=== PATIENT | female | born 1970 ===

== ENCOUNTER 2016-10-25 11:34 | Day surgery (SDC) | payer MEDICAID, OTHER ==
[2016-10-18 15:12] VITALS: BMI 50.8
[2016-10-25] MEDS ORDERED: Etomidate 20 mg/10ml Inj IV ONE (12:33)
[2016-10-25] MEDS ORDERED: Propofol 10 mg/ml Inj (20 ML) ONE (12:33)
[2016-10-25] MEDS ORDERED: Phenylephrine 10 mg/ml Inj ONE (12:34)
[2016-10-25] MEDS ORDERED: ePHEDrine 50 mg/ml Inj ONE (12:34)
[2016-10-25] MEDS ORDERED: HYDROmorphone 1 mg/ml ISec ONE (13:48)
--- NOTE | 2016-10-25 14:20 | CP.SDSHP ---
Same Day Surgery H & P - History Proposed Procedure: see [facility] consult. no change - Allergies Allergies: Allergies iodixanol Allergy (Severe, Verified 10/18/16 15:22) SHORTNESS OF BREATH Iodine and Iodide Containing Produc Allergy (Verified 10/18/16 15:22) SHORTNESS OF BREATH ketorolac Allergy (Verified 10/18/16 15:22) ITCHING ondansetron Allergy (Verified 10/18/16 15:22) ITCHING Short Stay Discharge - Short Stay Discharge Admitting Diagnosis/Reason for Visit: CAD Disposition: HOME/ ROUTINE
== END 2016-10-25 14:39 | disposition home or self-care (01) ==
LOC: C.CATHLAB 11:34
PROVIDERS: ATTEND Internal Medicine Cardiovascular Disease
DX: R06.02 Shortness of breath (principal); L29.9 Pruritus, unspecified
CPT/HCPCS: 93312; J1170; J2370; J2704

== ENCOUNTER 2017-09-02 23:51 | Observation (INO) | payer MEDICAID ==
[2017-09-02 23:52] VITALS: BMI 50.8
[2017-09-03 01:27] LABS: BASO # 0.1 K/uL (0.0-0.2); BASO % 0.8 % (0.0-2.0); EOS # 0.4 K/uL (0.0-0.7); EOS % 3.6 % (0.0-4.0); HEMOGLOBIN 11.6 g/dL (11.0-16.0); MEAN CELL VOLUME 78.2 fL (81.0-99.0); MEAN PLATELET VOLUME 8.4 fL (7.2-11.7); MONO % 9.5 % (0.0-10.0); NEUT % 57.1 % (50.0-75.0); NRBC % 0.2 % (0.0-2.0); RBC 4.64 Mil/uL (3.80-5.20); RED CELL DISTRIBUTION WIDTH 17.8 % (11.5-14.5); WHITE BLOOD COUNT 10.5 K/uL (4.8-10.8)
[2017-09-03 01:35] LABS: PROTHROMBIN TIME 11.1 SECONDS (9.7-12.2)
--- NOTE | 2017-09-03 01:46 | C.PDOC ---
History Of Present Illness Patient is a 47 y/o female with PMHx of multiple pulmonary emboli despite treatment with Eliquis, Coumadin, and Pradaxa. States she is currently maintained on Lovenox. Patient was at work today and had sudden onset left flank pain radiating to the lower quadrant of her abdomen. Associated with vomiting. No fever, chills, diarrhea, or urinary symptoms. Patient reports there were streaks of blood in the vomitus. Denies any prior hx of peptic ulcer disease, GERD. Surgical hx is significant for cholecystectomy and appendectomy. Time Seen by Provider: 09/03/17 01:21 Chief Complaint (Nursing): GI Problem History Per: Patient History/Exam Limitations: no limitations Onset/Duration Of Symptoms: Hrs Current Symptoms Are (Timing): Still Present Location Of Pain/Discomfort: LLQ Radiation Of Pain To:: Flank Associated Symptoms: Nausea, Vomiting Past Medical History Reviewed: Historical Data, Nursing Documentation, Vital Signs Vital Signs: Last Vital Signs Temp 98.4 F 09/03/17 15:00 Pulse 91 H 09/03/17 15:00 Resp 18 09/03/17 15:00 BP 112/81 09/03/17 15:00 Pulse Ox 96 09/03/17 15:00 - Medical History PMH: Asthma, Gall Bladder Disease, Kidney Stones, Pulmonary Embolism (x11), Chronic Kidney Disease Denies: Alzheimer's Disease, Anemia, Anxiety, Arthritis, Atrial Fibrillation , Bipolar Disorder, Bronchitis, CAD, Cardia Arrhythmia, CHF, COPD, Crohn's Disease, Dementia, Depression, Diverticulitis, Emphysema, Fractures, Gastritis, HIV, HTN, Hypercholesterolemia, Hyperthyroidism, Hypothyroidism, Migraine, Mitral Valve Prolapse, Multiple Sclerosis, Osteoporosis, Pancreatitis, Paranoia , Parkinson's Disease, Peripheral Edema, Pneumonia, Post Traumatic Stress Disorder, Rheumatoid Arthritis, Schizophrenia, Seizures, Sickle Cell Disease, Sexually Transmitted Disease, Sleep Apnea, TIA Surgical History: Appendectomy, Cholecystectomy Denies: CABG, Carotid Endarterectomy, Coronary Stent, Pacemaker, Tonsillectomy - [facility] Procedures APPLICATION OF SPLINT (12/04/04) CENTRAL VENOUS CATHETER PLACEMENT WITH GUIDANCE (05/11/14) CLOSED ENDOSCOPIC BIOPSY OF LARGE INTESTINE (09/03/05) DX ULTRASOUND-DIGESTIVE (09/03/05) ESOPHAGOGASTRODUODENOSCOPY [EGD] W/CLOSED BIOPSY (06/30/14) EXCISION OF STOMACH, ENDO, DIAGN (06/08/17) FLUOROSCOPY OF SUPERIOR VENA CAVA, GUIDANCE (10/19/16) INFLUENZA VACCINATION (08/28/14) INJECT ANTICOAGULANT (04/09/06) INJECT/INFUSE NEC (05/11/13) INSERT INFUSION DEV IN L INT JUGULAR VEIN, PERC (06/08/17) INSERTION OF INFUSION DEV INTO SUP VENA CAVA, PERC APPROACH (10/19/16) INTRODUCE OTH ANTI-INFECT IN CENTRAL VEIN, PERC (10/19/16) NEBULIZER THERAPY (12/24/03) OTHER APPENDECTOMY (12/16/01) SPINAL TAP (11/28/12) ULTRASONOGRAPHY OF SUPERIOR VENA CAVA, GUIDANCE (02/17/15) VACCINATION NEC (08/28/14) VENOUS CATHETERIZATION NEC (10/27/13) Family History: States: Hypertension - Social History Hx Tobacco Use: No Hx Alcohol Use: No Hx Substance Use: No - Immunization History Hx Tetanus Toxoid Vaccination: Yes Hx Influenza Vaccination: No Hx Pneumococcal Vaccination: Yes Review Of Systems Except As Marked, All Systems Reviewed And Found Negative. Constitutional: Negative for: Fever, Chills Gastrointestinal: Positive for: Vomiting (blood tinged), Abdominal Pain. Negative for: Diarrhea Genitourinary: Negative for: Dysuria, Hematuria Musculoskeletal: Positive for: Other (left flank pain) Physical Exam - Physical Exam Appears: No Acute Distress, Other (pleasant, morbidly obese female) Skin: Normal Color ([place]), Warm, Dry, No Pale Head: Atraumatic, Normacephalic Eye(s): bilateral: Normal Inspection (conjunctiva pink), PERRL, EOMI Nose: Normal Oral Mucosa: Moist Neck: Normal ROM, Supple Cardiovascular: Rhythm Regular, Other (Very loud S1 on auscultation) Respiratory: No Rales, No Rhonchi, No Wheezing, Other (Lungs CTA bilaterally) Gastrointestinal/Abdominal: Soft, Tenderness (to the left lower quadrant), No Mass, Guarding, No Rebound, Other (Protuberant, obese abdomen) Extremity: Bilateral: Atraumatic, Normal Color And Temperature Pulses: Left Dorsalis Pedis: Normal, Right Dorsalis Pedis: Normal Neurological/Psych: Oriented x3, Normal Speech, Normal Cranial Nerves, No Other (focal deficits) ED Course And Treatment - Laboratory Results Result Diagrams: 09/03/17 01:09 09/03/17 01:54 O2 Sat by Pulse Oximetry: 98 (RA) Pulse Ox Interpretation: Normal - CT Scan/US CT abdomen/pelvis Other Rad Studies (CT/US): Read By Radiologist, Radiology Report Reviewed CT/US Interpretation: FINDINGS: Lung bases: There is bibasilar atelectasis. ABDOMEN: Liver: Unremarkable. Gallbladder and bile ducts: Cholecystectomy. Pancreas: Unremarkable. No ductal dilation. Spleen: Splenectomy. There is endovascular stent in the location of splenic vessel. Adrenals: Unremarkable. No mass. Kidneys and ureters: Unremarkable. No obstructing stones. No hydronephrosis. Stomach and bowel: There is stool like appearance to the distal small bowel. This may represent. slow transit. Moderate amount of gas and stool in the colon. No obstruction. No mucosal thickening. Appendix: Normal appendix. PELVIS: Bladder: Unremarkable. Reproductive: Uterus is seen. ABDOMEN and PELVIS: Intraperitoneal space: Unremarkable. No free air. No significant fluid collection. Bones/joints: No acute fracture. No dislocation. Soft tissues: Unremarkable. Vasculature: Infrarenal IVC filter. The aorta is normal in caliber and there are no hernan-aortic. collections. Pelvic phleboliths. Lymph nodes: Unremarkable. No enlarged lymph nodes. IMPRESSION: No acute abnormality on this noncontrast CT examination of the abdomen and pelvis . Thank you for allowing us to participate in the care of your patient. Dictated and Authenticated by: Priscilla Hare MD. 09/03/2017 3:31 AM Eastern Time ([place] & [place]) Central Line Placement - Central Line Placement Indication: Unable To Obtain Adequate Peripheral Access Central Line Placement: Left: Internal Jugular The Area Was Thoroughly Prepared With: Chlorhexidine Area Was Locally Anesthetized With: Lidocaine 1% Procedure: Placed Using Standard Seldinger Technique, Procedure Tolerated Well, CXR Ordered To Confirm Placement Medical Decision Making Medical Decision Making: Impression: sudden onset left flank pain associated with vomiting Differential diagnosis includes: renal colic, gastroenteritis, diverticulitis, GI bleed Time: 1:09 Plan: * Routine labs * Dilaudid 2 mg IM * CT abd/pelvis Labs reviewed: no significant change in H/H, (+) pyuria Findings are consistent with pyelonephritis, which may have induced her vomiting and trace heme. Disposition - Disposition Disposition: HOSPITALIZED Disposition Time: 05:49 Condition: FAIR - Clinical Impression Clinical Impression: Pyelonephritis - Scribe Statement The provider has reviewed the documentation as recorded by the Scribe (Lizz Burch) Provider Attestation: All medical record entries made by the Scribe were at my direction and personally dictated by me. I have reviewed the chart and agree that the record accurately reflects my personal performance of the history, physical exam, medical decision making, and the department course for this patient. I have also personally directed, reviewed, and agree with the discharge instructions and disposition.
[2017-09-03 02:07] LABS: ALB/GLOB RATIO 1.3 (1.0-2.1); ALBUMIN 3.8 g/dL (3.5-5.0); AST/SGOT 33 U/L (14-36); BLOOD UREA NITROGEN 12 mg/dL (7-17); CALCIUM 9.2 mg/dl (8.6-10.4); GFR AFRICAN-AMERICAN > 60; GFR NON-AFRICAN AMERICAN > 60
[2017-09-03 03:04] LABS: SQUAMOUS EPITHIAL 22 /hpf (0-5); URINE BILIRUBIN NEGATIVE (NEGATIVE); URINE BLOOD NEGATIVE (NEGATIVE); URINE CLARITY Hazy (Clear); URINE COLOR Yellow (YELLOW); URINE GLUCOSE (UA) NORMAL (Normal); URINE LEUKOCYTE ESTERASE 3+ Leu/uL (Negative); URINE PROTEIN NEGATIVE (NEGATIVE); URINE UROBILINOGEN NORMAL mg/dL (0.2-1.0)
[2017-09-03 03:26] LABS: ALT/SGPT < 6 U/L (9-52)
--- NOTE | 2017-09-03 03:31 | CT ---
EXAM: CT Abdomen and Pelvis Without Intravenous Contrast CLINICAL HISTORY: 47 years old, female; Pain; Abdominal pain; Patient HX: 06-30-14 images sent; Additional info: Renal colic TECHNIQUE: Axial computed tomography images of the abdomen and pelvis without intravenous contrast. All CT scans at this facility use one or more dose reduction techniques, viz.: automated exposure control; ma/kV adjustment per patient size (including targeted exams where dose is matched to indication; i.e. head); or iterative reconstruction technique. 744 images are submitted.Limitations: Absence of IV contrast decreases sensitivity for detecting vascular and visceral injury and abnormality. Coronal and sagittal reformatted images were created and reviewed. Axial reformatted images were created and reviewed. COMPARISON: CT - ABD PELVIS W/O PO OR IV CONT 2013-06-27 21:49 FINDINGS: Lung bases: There is bibasilar atelectasis. ABDOMEN: Liver: Unremarkable. Gallbladder and bile ducts: Cholecystectomy. Pancreas: Unremarkable. No ductal dilation. Spleen: Splenectomy. There is endovascular stent in the location of splenic vessel. Adrenals: Unremarkable. No mass. Kidneys and ureters: Unremarkable. No obstructing stones. No hydronephrosis. Stomach and bowel: There is stool like appearance to the distal small bowel. This may represent slow transit. Moderate amount of gas and stool in the colon. No obstruction. No mucosal thickening. Appendix: Normal appendix. PELVIS: Bladder: Unremarkable. Reproductive: Uterus is seen. ABDOMEN and PELVIS: Intraperitoneal space: Unremarkable. No free air. No significant fluid collection. Bones/joints: No acute fracture. No dislocation. Soft tissues: Unremarkable. Vasculature: Infrarenal IVC filter. The aorta is normal in caliber and there are no hernan-aortic collections. Pelvic phleboliths. Lymph nodes: Unremarkable. No enlarged lymph nodes. IMPRESSION: No acute abnormality on this noncontrast CT examination of the abdomen and pelvis .
[2017-09-03] MEDS ORDERED: Oxycodone/Acetaminophen 5/325 mg Tab PO STA (03:56)
[2017-09-03] MEDS ORDERED: Oxycodone/Acetaminophen 5/325 mg Tab ONE (04:07)
[2017-09-03] MEDS ORDERED: cefTRIAXone 1 gm in Water For Injection 2.1 ML IM STA (05:51)
[2017-09-03] MEDS ORDERED: cefTRIAXone IV 1 gm in Dextros 50 ML IVPB ONE (07:07)
[2017-09-03 07:18] LABS: URINE BILIRUBIN NEGATIVE (NEGATIVE); URINE BLOOD NEGATIVE (NEGATIVE); URINE CLARITY Clear (Clear); URINE COLOR Yellow (YELLOW); URINE GLUCOSE (UA) NORMAL (Normal); URINE LEUKOCYTE ESTERASE NEG Leu/uL (Negative); URINE PROTEIN NEGATIVE (NEGATIVE); URINE UROBILINOGEN NORMAL mg/dL (0.2-1.0)
[2017-09-03 08:14] VITALS: RESP 18
--- NOTE | 2017-09-03 08:29 | CP.PCM.HP ---
<Serenity Jarquin - Last Filed: 09/03/17 11:20> History of Present Illness - History of Present Illness History of Present Illness: CC: Left lower abdominal pain/left flank pain and nausea HPI: Patient is a 47 year old female with past medical history of multiple Pulmonary embolism, who has failed anticoagulation therapy, therefore, has an IVC filter in place with the addition of lovenox 130mg SC BID. Patient presents to the ED with complaints of left lower abdominal pain that radiates to the left flank with associated symptoms of nausea and vomiting that started yesterday at work. Patient reports that the last time she ate was at lunch; a grilled chicken salad, which was prepared by her. Patient noted blood-tinged vomit with food content. Patient admits to associated symptoms of chills. pain/ pressure with urination but denies chest pain, palpitations, SOB, fever, hematuria. 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 Denies current or former of tobacco, ETOH and illicit drugs Present on Admission - Present on Admission Any Indicators Present on Admission: Yes History of DVT/PE: Yes Review of Systems - Constitutional Constitutional: Chills. absent: Fever, Headache, Weight Loss, Weakness - EENT Eyes: absent: Blurred Vision, Change in Vision Ears: absent: Dizziness - Cardiovascular Cardiovascular: absent: Chest Pain, Chest Pain at Rest, Diaphoresis, Dyspnea, Lightheadedness, Palpitations - Respiratory Respiratory: absent: Cough, Dyspnea, Dyspnea on Exertion, Wheezing - Gastrointestinal Gastrointestinal: Abdominal Pain, Cramping, Hematemesis, Nausea, Vomiting. absent: Bloating, Constipation, Diarrhea, Dysphagia, Heartburn, Hematochezia, Loose Stools - Genitourinary Genitourinary: absent: Difficulty Urinating, Dysuria, Hematuria, Pyuria Additional comments: Pressure with urinating - Neurological Neurological: absent: Abnormal Speech, Behavioral Changes, Burning Sensations, Confusion, Dizziness, Headaches, Lack of Coordination, Loss of Vision - Psychiatric Psychiatric: absent: Anxiety, Confusion, Depression, Visual Hallucinations, Tactile Hallucinations - Endocrine Endocrine: Fatigue. absent: Palpitations Past Patient History - Infectious Disease Hx of Infectious Diseases: None - Tetanus Immunizations Tetanus Immunization: Up to Date - Past Medical History & Family History Past Medical History?: Yes - Past Social History Smoking Status: Never Smoked - CARDIAC Hx Atrial Fibrillation: No Hx Cardia Arrhythmia: No Hx Congestive Heart Failure: No Hx Hypercholesterolemia: No Hx Hypertension: No Hx Mitral Valve Prolapse: No Hx Pacemaker: No Hx Peripheral Edema: No - PULMONARY Hx Asthma: Yes Hx Bronchitis: No Hx Chronic Obstructive Pulmonary Disease (COPD): No Hx Emphysema: No Hx Pneumonia: No Hx Pulmonary Embolism: Yes (x11) Hx Sleep Apnea: No - NEUROLOGICAL Hx Alzheimer's Disease: No Hx Dementia: No Hx Migraine: No Hx Multiple Sclerosis: No Hx Parkinson's Disease: No Hx Seizures: No Hx Transient Ischemic Attacks (TIA): No - HEENT Hx HEENT Problems: No Hx Blind: No Hx Cataracts: No Hx Deafness: No Hx Difficulty Chewing: No Hx Epistaxis: No Hx Glaucoma: No Hx Macular Degeneration: No - RENAL Hx Chronic Kidney Disease: Yes Hx Kidney Stones: Yes - ENDOCRINE/METABOLIC Hx Hyperthyroidism: No Hx Hypothyroidism: No - HEMATOLOGICAL/ONCOLOGICAL Hx Anemia: No Hx Human Immunodeficiency Virus (HIV): No Hx Sickle Cell Disease: No - INTEGUMENTARY Hx Dermatological Problems: No Hx Basil Cell: No Hx Huang: No Hx Cellulitis: No Hx Eczema: No Hx Melanoma: No Hx Psoriasis: No Hx Squamous Cell: No - MUSCULOSKELETAL/RHEUMATOLOGICAL Hx Arthritis: No Hx Fractures: No Hx Osteoporosis: No Hx Rheumatoid Arthritis: No - GASTROINTESTINAL Hx Crohn's Disease: No Hx Diverticulitis: No Hx Gall Bladder Disease: Yes Hx Gastritis: No Hx Pancreatitis: No - GENITOURINARY/GYNECOLOGICAL Hx Sexually Transmitted Disorders: No - PSYCHIATRIC Hx Anxiety: No Hx Bipolar Disorder: No Hx Depression: No Hx Paranoia: No Hx Post Traumatic Stress Disorder: No Hx Schizophrenia: No Hx Substance Use: No - SURGICAL HISTORY Hx Appendectomy: Yes Hx Carotid Endarterectomy: No Hx Cholecystectomy: Yes Hx Coronary Artery Bypass Graft: No Hx Coronary Stent: No Hx Tonsillectomy: No - ANESTHESIA Hx Anesthesia: Yes Hx Anesthesia Reactions: No Hx Malignant Hyperthermia: No Meds Home Medications: Home Medication List Medication Instructions Recorded Confirmed Type Metoclopramide [Reglan] 10 mg PO Q6H PRN #10 tab 09/03/17 Rx Pantoprazole Sodium [Protonix] 40 mg PO DAILY #30 ect 09/03/17 Rx Allergies/Adverse Reactions: Allergies Allergy/AdvReac Type Severity Reaction Status Date / Time iodixanol Allergy Severe SHORTNESS Verified 09/03/17 00:04 OF BREATH acetaminophen [From Percocet] Allergy RASH Verified 09/03/17 04:08 Iodine and Iodide Containing Allergy SHORTNESS Verified 09/03/17 00:04 Produc OF BREATH ketorolac Allergy ITCHING Verified 09/03/17 00:04 morphine Allergy RASH Verified 09/03/17 00:04 NSAIDS (Non-Steroidal Allergy ITCHING Verified 09/03/17 00:04 Anti-Inflamma ondansetron Allergy ITCHING Verified 09/03/17 00:04 oxycodone [From Percocet] Allergy RASH Verified 09/03/17 04:08 Physical Exam - Constitutional Appears: No Acute Distress - Head Exam Head Exam: ATRAUMATIC, NORMAL INSPECTION - Eye Exam Eye Exam: EOMI, Normal appearance - ENT Exam ENT Exam: Mucous Membranes Moist - Respiratory Exam Respiratory Exam: Clear to Auscultation Bilateral, NORMAL BREATHING PATTERN. absent: Prolonged Expiratory Phase, Rhonchi, Wheezes, Respiratory Distress - Cardiovascular Exam Cardiovascular Exam: REGULAR RHYTHM, +S1, +S2. absent: Tachycardia, Clicks, Diastolic murmur, Irregular Rhythm, Systolic Murmur - GI/Abdominal Exam GI & Abdominal Exam: Normal Bowel Sounds, Soft, Tenderness. absent: Diminished Bowel Sounds, Distended, Hyperactive Bowel Sounds Additional comments: Lower left quadrant - Extremities Exam Extremities exam: Positive for: normal inspection. Negative for: calf tenderness, pedal edema - Neurological Exam Neurological exam: Alert, Oriented x3 - Psychiatric Exam Psychiatric exam: Anxious - Skin Skin Exam: Normal Color Results - Vital Signs Recent Vital Signs: Last Vital Signs Temp 97.5 F L 09/03/17 08:13 Pulse 95 H 09/03/17 08:13 Resp 18 09/03/17 08:13 BP 115/79 09/03/17 08:13 Pulse Ox 95 09/03/17 08:13 - Labs Result Diagrams: 09/03/17 01:09 09/03/17 01:54 Labs: Laboratory Results - last 24 hr 09/03/17 09/03/17 09/03/17 01:09 01:54 01:54 WBC 10.5 RBC 4.64 Hgb 11.6 Hct 36.3 MCV 78.2 L D MCH 25.0 L MCHC 32.0 L RDW 17.8 H Plt Count 526 H MPV 8.4 Neut % (Auto) 57.1 Lymph % (Auto) 29.0 [place] % (Auto) 9.5 Eos % (Auto) 3.6 Baso % (Auto) 0.8 Neut # (Auto) 6.0 Lymph # (Auto) 3.0 [place] # (Auto) 1.0 H Eos # (Auto) 0.4 Baso # (Auto) 0.1 PT 11.1 INR 1.0 APTT 21 Sodium 139 Potassium 4.7 Chloride 103 Carbon Dioxide 23 Anion Gap 17 BUN 12 Creatinine 0.6 L Est GFR ( Amer) > 60 Est GFR (Non-Af Amer) > 60 Random Glucose 97 Calcium 9.2 Total Bilirubin 0.5 AST 33 ALT < 6 L D Alkaline Phosphatase 61 Total Protein 6.8 Albumin 3.8 Globulin 3.0 Albumin/Globulin Ratio 1.3 Urine Color Urine Clarity Urine pH Ur Specific [place] Urine Protein Urine Glucose (UA) Urine Ketones Urine Blood Urine Nitrate Urine Bilirubin Urine Urobilinogen Ur Leukocyte Esterase Urine WBC (Auto) Urine RBC (Auto) Ur Squamous Epith Cells Urine HCG, Qual 09/03/17 09/03/17 09/03/17 01:54 01:59 07:07 WBC RBC Hgb Hct MCV MCH MCHC RDW Plt Count MPV Neut % (Auto) Lymph % (Auto) [place] % (Auto) Eos % (Auto) Baso % (Auto) Neut # (Auto) Lymph # (Auto) [place] # (Auto) Eos # (Auto) Baso # (Auto) PT INR APTT Sodium Potassium Chloride Carbon Dioxide Anion Gap BUN Creatinine Est GFR ( Amer) Est GFR (Non-Af Amer) Random Glucose Calcium Total Bilirubin AST ALT Alkaline Phosphatase Total Protein Albumin Globulin Albumin/Globulin Ratio Urine Color Yellow Yellow Urine Clarity Hazy Clear Urine pH 7.0 5.0 Ur Specific [place] 1.012 1.016 Urine Protein Negative Negative Urine Glucose (UA) Normal Normal Urine Ketones Negative Negative Urine Blood Negative Negative Urine Nitrate Negative Negative Urine Bilirubin Negative Negative Urine Urobilinogen Normal Normal Ur Leukocyte Esterase 3+ H Neg Urine WBC (Auto) 15 H 1 Urine RBC (Auto) 1 < 1 Ur Squamous Epith Cells 22 H Urine HCG, Qual Negative Assessment & Plan (1) Abdominal pain of unknown etiology Assessment and Plan: Diagnostic imaging and labs: No leukocuytosis and Afebrile Total bilirubin: 0.5 AST/ALT: 33/<6 Lipase: 100 UA ( Catherization): Negative nitrate and leukocyte esterase Abdominal CT/Pelvis: No acute abnormality on this noncontrast CT examination of the abdomen and pelvis . Medications: * Dilaudid IM and PO 2mg in the ED: Pain control * NS 500cc * Protonix 40mg IV * Mylicon 80mg PO once * Reglan 10mg IV Status: Acute (2) History of pulmonary embolism Assessment and Plan: Continue home medication: * Lovenox 130mg SC BID Status: Acute (3) Prophylactic measure Assessment and Plan: GI: Protonix 40mg IV Q12H DVT: Lovenox 130mg SC BID Disposition: Plans to discharge patient and for outpatient follow up All plans and management discussed with Dr. Ross Status: Acute <Kareem Ross H - Last Filed: 09/03/17 15:53> Results - Vital Signs Recent Vital Signs: Last Vital Signs Temp 97.5 F L 09/03/17 08:13 Pulse 95 H 09/03/17 08:13 Resp 18 09/03/17 08:13 BP 115/79 09/03/17 08:13 Pulse Ox 95 09/03/17 08:13 - Labs Result Diagrams: 09/03/17 01:09 09/03/17 01:54 Labs: Laboratory Results - last 24 hr 09/03/17 09/03/17 09/03/17 01:09 01:54 01:54 WBC 10.5 RBC 4.64 Hgb 11.6 Hct 36.3 MCV 78.2 L D MCH 25.0 L MCHC 32.0 L RDW 17.8 H Plt Count 526 H MPV 8.4 Neut % (Auto) 57.1 Lymph % (Auto) 29.0 [place] % (Auto) 9.5 Eos % (Auto) 3.6 Baso % (Auto) 0.8 Neut # (Auto) 6.0 Lymph # (Auto) 3.0 [place] # (Auto) 1.0 H Eos # (Auto) 0.4 Baso # (Auto) 0.1 PT 11.1 INR 1.0 APTT 21 Sodium 139 Potassium 4.7 Chloride 103 Carbon Dioxide 23 Anion Gap 17 BUN 12 Creatinine 0.6 L Est GFR ( Amer) > 60 Est GFR (Non-Af Amer) > 60 Random Glucose 97 Calcium 9.2 Total Bilirubin 0.5 AST 33 ALT < 6 L D Alkaline Phosphatase 61 Total Protein 6.8 Albumin 3.8 Globulin 3.0 Albumin/Globulin Ratio 1.3 Lipase 100 Urine Color Urine Clarity Urine pH Ur Specific [place] Urine Protein Urine Glucose (UA) Urine Ketones Urine Blood Urine Nitrate Urine Bilirubin Urine Urobilinogen Ur Leukocyte Esterase Urine WBC (Auto) Urine RBC (Auto) Ur Squamous Epith Cells Urine HCG, Qual 09/03/17 09/03/17 09/03/17 01:54 01:59 07:07 WBC RBC Hgb Hct MCV MCH MCHC RDW Plt Count MPV Neut % (Auto) Lymph % (Auto) [place] % (Auto) Eos % (Auto) Baso % (Auto) Neut # (Auto) Lymph # (Auto) [place] # (Auto) Eos # (Auto) Baso # (Auto) PT INR APTT Sodium Potassium Chloride Carbon Dioxide Anion Gap BUN Creatinine Est GFR ( Amer) Est GFR (Non-Af Amer) Random Glucose Calcium Total Bilirubin AST ALT Alkaline Phosphatase Total Protein Albumin Globulin Albumin/Globulin Ratio Lipase Urine Color Yellow Yellow Urine Clarity Hazy Clear Urine pH 7.0 5.0 Ur Specific [place] 1.012 1.016 Urine Protein Negative Negative Urine Glucose (UA) Normal Normal Urine Ketones Negative Negative Urine Blood Negative Negative Urine Nitrate Negative Negative Urine Bilirubin Negative Negative Urine Urobilinogen Normal Normal Ur Leukocyte Esterase 3+ H Neg Urine WBC (Auto) 15 H 1 Urine RBC (Auto) 1 < 1 Ur Squamous Epith Cells 22 H Urine HCG, Qual Negative Attending/Attestation - Attestation I have personally seen and examined this patient.: Yes I have fully participated in the care of the patient.: Yes I have reviewed all pertinent clinical information: Yes Notes (Text): 09/03/17 15:42 This is a 47 year old female whom was already brought to the medical floor before we could see the patient in the ER I am very concerned about the patient going to multiple hospitals - when I came to see the patient with the medical residents - she reported to me that she has never had abdominal pain before and also that she has never had any abdominal procedures. Per review of the medical records available - she has recently been to many hospitals including [facility] in late May where she did undergo an EGD - besides gastritis, this did not show any acute findings. There is also a note in October 21, 2016 from [facility] which reports she is going to several other hospitals in [place] as well. Per review of the medical records on many occasions she is receiving IV Dilaudid for pain - when I came to see the patient she was NOT in any acute distress. She also has allergies to Toradol - she says it causes her to have bad reactions , allergies to percocet, tylenol, and IV contrast It appears that at one point she had a pulmonary embolism some time ago and was not able to be on coumadin, pradaxa, or eliquis for anticoagulation. There fore she is on lovenox 130 mg sc QD which she reports she takes. There have been multiple hospitalisations where other providers have ordered VQ scans and these have been low probability. So I explained to her that the lab work including CBC as well as CMP are normal. The ER had put down pylenephritis as the admitting diagnosis despite her UA being normal, afebrile, and a normal CT scan of the abdomen. I explained that we would be providing additional IVF and also checking a lipase level - should the lipase be normal then we would be discharging her. I am very concerned that she reported to me that she has never been hospitalised for abdominal pain before - yet the medical record says she was recently at [facility] with similar situation and also EGD done. thank you Kareem Ross
--- NOTE | 2017-09-03 09:56 | RAD ---
Chest x-ray single frontal view History: Sepsis. Comparison: 02/16/2015 Findings: Left central venous catheter tip extending to the proximal right SVC. Mild venous congestion. Curvilinear nodular density/opacity at the left lung base may represent prominent vasculature. Tortuous aorta. Degenerative changes in the spine and shoulders. Impression: Left central venous catheter tip extending to the proximal right SVC. Mild venous congestion. Curvilinear nodular density/opacity at the left lung base may represent prominent vasculature. Tortuous aorta.
[2017-09-03] MEDS ORDERED: Sodium Chloride 0.9% 500 ML IV ONE (10:31)
[2017-09-03] MEDS ORDERED: Simethicone 80 mg Chewtab PO ONE (10:42)
[2017-09-03 10:54] LABS: LIPASE 100 U/L (23-300)
[2017-09-03] MEDS ORDERED: Enoxaparin 120 mg Syringe SC SCH (11:00)
--- NOTE | 2017-09-03 14:41 | CP.PCM.DIS ---
<BrittonYennybeverly E - Last Filed: 09/03/17 14:42> Provider - Provider Date of Admission: 09/03/17 05:49 Attending physician: Kareem Ross DO Time Spent in preparation of Discharge (in minutes): 35 Diagnosis - Discharge Diagnosis (1) Abdominal pain of unknown etiology Status: Acute (2) History of pulmonary embolism Status: Chronic (3) Prophylactic measure Status: Acute Hospital Course - Lab Results Lab Results: Most Recent Lab Values WBC 10.5 K/uL (4.8-10.8) 09/03/17 01:09 RBC 4.64 Mil/uL (3.80-5.20) 09/03/17 01:09 Hgb 11.6 g/dL (11.0-16.0) 09/03/17 01:09 Hct 36.3 % (34.0-47.0) 09/03/17 01:09 MCV 78.2 fL (81.0-99.0) L D 09/03/17 01:09 MCH 25.0 pg (27.0-31.0) L 09/03/17 01:09 MCHC 32.0 g/dL (33.0-37.0) L 09/03/17 01:09 RDW 17.8 % (11.5-14.5) H 09/03/17 01:09 Plt Count 526 K/uL (130-400) H 09/03/17 01:09 MPV 8.4 fL (7.2-11.7) 09/03/17 01:09 Neut % (Auto) 57.1 % (50.0-75.0) 09/03/17 01:09 Lymph % (Auto) 29.0 % (20.0-40.0) 09/03/17 01:09 [place] % (Auto) 9.5 % (0.0-10.0) 09/03/17 01:09 Eos % (Auto) 3.6 % (0.0-4.0) 09/03/17 01:09 Baso % (Auto) 0.8 % (0.0-2.0) 09/03/17 01:09 Neut # (Auto) 6.0 K/uL (1.8-7.0) 09/03/17 01:09 Lymph # (Auto) 3.0 K/uL (1.0-4.3) 09/03/17 01:09 [place] # (Auto) 1.0 K/uL (0.0-0.8) H 09/03/17 01:09 Eos # (Auto) 0.4 K/uL (0.0-0.7) 09/03/17 01:09 Baso # (Auto) 0.1 K/uL (0.0-0.2) 09/03/17 01:09 PT 11.1 SECONDS (9.7-12.2) 09/03/17 01:54 INR 1.0 09/03/17 01:54 APTT 21 SECONDS (21-34) 09/03/17 01:54 Sodium 139 mmol/L (132-148) 09/03/17 01:54 Potassium 4.7 mmol/L (3.6-5.2) 09/03/17 01:54 Chloride 103 mmol/L (98-107) 09/03/17 01:54 Carbon Dioxide 23 mmol/L (22-30) 09/03/17 01:54 Anion Gap 17 (10-20) 09/03/17 01:54 BUN 12 mg/dL (7-17) 09/03/17 01:54 Creatinine 0.6 mg/dL (0.7-1.2) L 09/03/17 01:54 Est GFR ( Amer) > 60 09/03/17 01:54 Est GFR (Non-Af Amer) > 60 09/03/17 01:54 Random Glucose 97 mg/dL (65-105) 09/03/17 01:54 Calcium 9.2 mg/dl (8.6-10.4) 09/03/17 01:54 Total Bilirubin 0.5 mg/dL (0.2-1.3) 09/03/17 01:54 AST 33 U/L (14-36) 09/03/17 01:54 ALT < 6 U/L (9-52) L D 09/03/17 01:54 Alkaline Phosphatase 61 U/L (38-126) 09/03/17 01:54 Total Protein 6.8 g/dL (6.3-8.3) 09/03/17 01:54 Albumin 3.8 g/dL (3.5-5.0) 09/03/17 01:54 Globulin 3.0 gm/dL (2.2-3.9) 09/03/17 01:54 Albumin/Globulin Ratio 1.3 (1.0-2.1) 09/03/17 01:54 Lipase 100 U/L (23-300) 09/03/17 01:54 Urine Color Yellow (YELLOW) 09/03/17 07:07 Urine Clarity Clear (Clear) 09/03/17 07:07 Urine pH 5.0 (5.0-8.0) 09/03/17 07:07 Ur Specific [place] 1.016 (1.003-1.030) 09/03/17 07:07 Urine Protein Negative mg/dL (NEGATIVE) 09/03/17 07:07 Urine Glucose (UA) Normal mg/dL (Normal) 09/03/17 07:07 Urine Ketones Negative mg/dL (NEGATIVE) 09/03/17 07:07 Urine Blood Negative (NEGATIVE) 09/03/17 07:07 Urine Nitrate Negative (NEGATIVE) 09/03/17 07:07 Urine Bilirubin Negative (NEGATIVE) 09/03/17 07:07 Urine Urobilinogen Normal mg/dL (0.2-1.0) 09/03/17 07:07 Ur Leukocyte Esterase Neg Krystian/uL (Negative) 09/03/17 07:07 Urine WBC (Auto) 1 /hpf (0-5) 09/03/17 07:07 Urine RBC (Auto) < 1 /hpf (0-3) 09/03/17 07:07 Ur Squamous Epith Cells 22 /hpf (0-5) H 09/03/17 01:59 Urine HCG, Qual Negative (NEGATIVE) 09/03/17 01:54 - Hospital Course Hospital Course: HPI (As per admission): Patient is a 47 year old female with past medical history of multiple Pulmonary embolism, who has failed anticoagulation therapy, therefore, has an IVC filter in place with the addition of lovenox 130mg SC BID. Patient presents to the ED with complaints of left lower abdominal pain that radiates to the left flank with associated symptoms of nausea and vomiting that started yesterday at work. Patient reports that the last time she ate was at lunch; a grilled chicken salad , which was prepared by her. Patient noted blood-tinged vomit with food content. Patient admits to associated symptoms of chills. pain/pressure with urination but denies chest pain, palpitations, SOB, fever, hematuria. Hospital Course: Patient was admitted with the diagnosis for left lower quadrant abdominal pain and r/o pyleonephritis. Patient had all appropriate labs and diagnostic testing , which were negative. Patient had no acute issues over the course of stay and she was without severe pain. Patient was ambulating on her own without difficulty and requesting for regular food. On admission, patient was Afebrile without leukocytosis and negative repeat UA. Patient was discharged upon negative labs and diagnostic testing. Upon discharge, patient was instructed to follow with her PMD or establish care with a PMD in order to reduce her recurrent visits to the ER and for better constant medical care. Pertinent imaging/Labs: No leukocuytosis and Afebrile Total bilirubin: 0.5 AST/ALT: 33/<6 Lipase: 100 UA ( Catherization): Negative nitrate and leukocyte esterase Abdominal CT/Pelvis: No acute abnormality on this noncontrast CT examination of the abdomen and pelvis . This is a brief summary of events. For a complete course, please refer to the medical records Discharge Exam - Head Exam Head Exam: ATRAUMATIC, NORMAL INSPECTION - Eye Exam Eye Exam: EOMI, Normal appearance - ENT Exam ENT Exam: Mucous Membranes Moist - Respiratory Exam Respiratory Exam: Clear to PA & Lateral, NORMAL BREATHING PATTERN. absent: Prolonged Expiratory Phase, Wheezes, Respiratory Distress - Cardiovascular Exam Cardiovascular Exam: REGULAR RHYTHM, +S1, +S2. absent: Tachycardia, Diastolic murmur, Irregular Rhythm, Systolic Murmur - GI/Abdominal Exam GI & Abdominal Exam: Normal Bowel Sounds, Soft. absent: Distended, Firm, Guarding, Tenderness - Extremities Exam Extremities exam: normal inspection - Back Exam Back exam: absent: CVA tenderness (L), CVA tenderness (R) - Neurological Exam Neurological exam: Alert, Oriented x3 - Psychiatric Exam Psychiatric exam: Anxious, Normal Affect - Skin Skin Exam: Normal Color Discharge Plan - Discharge Medications Prescriptions: Metoclopramide [Reglan] 10 mg PO Q6H PRN #10 tab PRN Reason: Nausea/Vomiting Pantoprazole Sodium [Protonix] 40 mg PO DAILY #30 ect - Follow Up Plan Condition: FAIR Disposition: HOME/ ROUTINE Instructions: Kidney Infection, Metoclopramide, Pantoprazole Additional Instructions: Please discharge patient home Please continue home medications as prescribed Please start the following medication: 1. Protonix 40mg PO daily 2. Reglan 10mg PO Q6H prn for nausea Please follow up with your PMD or establish care at [facility], Please follow up with outpatient GI Please continue with hydration Please take OTC maalox for upset stomach Please take care <Kareem Ross - Last Filed: 09/03/17 15:57> Provider - Provider Date of Admission: 09/03/17 05:49 Attending physician: Kareem Ross, DO Hospital Course - Lab Results Lab Results: Most Recent Lab Values WBC 10.5 K/uL (4.8-10.8) 09/03/17 01:09 RBC 4.64 Mil/uL (3.80-5.20) 09/03/17 01:09 Hgb 11.6 g/dL (11.0-16.0) 09/03/17 01:09 Hct 36.3 % (34.0-47.0) 09/03/17 01:09 MCV 78.2 fL (81.0-99.0) L D 09/03/17 01:09 MCH 25.0 pg (27.0-31.0) L 09/03/17 01:09 MCHC 32.0 g/dL (33.0-37.0) L 09/03/17 01:09 RDW 17.8 % (11.5-14.5) H 09/03/17 01:09 Plt Count 526 K/uL (130-400) H 09/03/17 01:09 MPV 8.4 fL (7.2-11.7) 09/03/17 01:09 Neut % (Auto) 57.1 % (50.0-75.0) 09/03/17 01:09 Lymph % (Auto) 29.0 % (20.0-40.0) 09/03/17 01:09 [place] % (Auto) 9.5 % (0.0-10.0) 09/03/17 01:09 Eos % (Auto) 3.6 % (0.0-4.0) 09/03/17 01:09 Baso % (Auto) 0.8 % (0.0-2.0) 09/03/17 01:09 Neut # (Auto) 6.0 K/uL (1.8-7.0) 09/03/17 01:09 Lymph # (Auto) 3.0 K/uL (1.0-4.3) 09/03/17 01:09 [place] # (Auto) 1.0 K/uL (0.0-0.8) H 09/03/17 01:09 Eos # (Auto) 0.4 K/uL (0.0-0.7) 09/03/17 01:09 Baso # (Auto) 0.1 K/uL (0.0-0.2) 09/03/17 01:09 PT 11.1 SECONDS (9.7-12.2) 09/03/17 01:54 INR 1.0 09/03/17 01:54 APTT 21 SECONDS (21-34) 09/03/17 01:54 Sodium 139 mmol/L (132-148) 09/03/17 01:54 Potassium 4.7 mmol/L (3.6-5.2) 09/03/17 01:54 Chloride 103 mmol/L (98-107) 09/03/17 01:54 Carbon Dioxide 23 mmol/L (22-30) 09/03/17 01:54 Anion Gap 17 (10-20) 09/03/17 01:54 BUN 12 mg/dL (7-17) 09/03/17 01:54 Creatinine 0.6 mg/dL (0.7-1.2) L 09/03/17 01:54 Est GFR ( Amer) > 60 09/03/17 01:54 Est GFR (Non-Af Amer) > 60 09/03/17 01:54 Random Glucose 97 mg/dL (65-105) 09/03/17 01:54 Calcium 9.2 mg/dl (8.6-10.4) 09/03/17 01:54 Total Bilirubin 0.5 mg/dL (0.2-1.3) 09/03/17 01:54 AST 33 U/L (14-36) 09/03/17 01:54 ALT < 6 U/L (9-52) L D 09/03/17 01:54 Alkaline Phosphatase 61 U/L (38-126) 09/03/17 01:54 Total Protein 6.8 g/dL (6.3-8.3) 09/03/17 01:54 Albumin 3.8 g/dL (3.5-5.0) 09/03/17 01:54 Globulin 3.0 gm/dL (2.2-3.9) 09/03/17 01:54 Albumin/Globulin Ratio 1.3 (1.0-2.1) 09/03/17 01:54 Lipase 100 U/L (23-300) 09/03/17 01:54 Urine Color Yellow (YELLOW) 09/03/17 07:07 Urine Clarity Clear (Clear) 09/03/17 07:07 Urine pH 5.0 (5.0-8.0) 09/03/17 07:07 Ur Specific [place] 1.016 (1.003-1.030) 09/03/17 07:07 Urine Protein Negative mg/dL (NEGATIVE) 09/03/17 07:07 Urine Glucose (UA) Normal mg/dL (Normal) 09/03/17 07:07 Urine Ketones Negative mg/dL (NEGATIVE) 09/03/17 07:07 Urine Blood Negative (NEGATIVE) 09/03/17 07:07 Urine Nitrate Negative (NEGATIVE) 09/03/17 07:07 Urine Bilirubin Negative (NEGATIVE) 09/03/17 07:07 Urine Urobilinogen Normal mg/dL (0.2-1.0) 09/03/17 07:07 Ur Leukocyte Esterase Neg Krystian/uL (Negative) 09/03/17 07:07 Urine WBC (Auto) 1 /hpf (0-5) 09/03/17 07:07 Urine RBC (Auto) < 1 /hpf (0-3) 09/03/17 07:07 Ur Squamous Epith Cells 22 /hpf (0-5) H 09/03/17 01:59 Urine HCG, Qual Negative (NEGATIVE) 09/03/17 01:54 Attending/Attestation - Attestation I have personally seen and examined this patient.: Yes I have fully participated in the care of the patient.: Yes I have reviewed all pertinent clinical information, including history, physical exam and plan: Yes Notes (Text): 09/03/17 15:55 Medical attending: Please note, this is similar to the addendum of the HP : I am really concerned about the potential narcotic over use. There are records of her going to other nearby hospitals, yet when I come to see her she claimed she has never had abdominal pain before. This is a 47 year old female whom was already brought to the medical floor before we could see the patient in the ER (she came up during a change in shift) I am very concerned about the patient going to multiple hospitals - when I came to see the patient with the medical residents - she reported to me that she has never had abdominal pain before and also that she has never had any abdominal procedures. Per review of the medical records available - she has recently been to many hospitals including [facility] in late May where she did undergo an EGD - besides gastritis, this did not show any acute findings. There is also a note in October 21, 2016 from [facility] which reports she is going to several other hospitals in [place] as well. Per review of the medical records on many occasions she is receiving IV Dilaudid for pain - when I came to see the patient she was NOT in any acute distress. She also has allergies to Toradol - she says it causes her to have bad reactions , allergies to percocet, tylenol, and IV contrast It appears that at one point she had a pulmonary embolism some time ago and was not able to be on coumadin, pradaxa, or eliquis for anticoagulation. There fore she is on lovenox 130 mg sc QD which she reports she takes. There have been multiple hospitalisations where other providers have ordered VQ scans and these have been low probability. So I explained to her that the lab work including CBC as well as CMP are normal. The ER had put down pylenephritis as the admitting diagnosis despite her UA being normal, afebrile, and a normal CT scan of the abdomen. I explained that we would be providing additional IVF and also checking a lipase level - should the lipase be normal then we would be discharging her. I am very concerned that she reported to me that she has never been hospitalised for abdominal pain before - yet the medical record says she was recently at [facility] with similar situation and also EGD done. thank you Kareem Ross
[2017-09-03 15:53] VITALS: BP 112/81; PULSE 91; TEMP 98.4
[2017-09-04 02:04] VITALS: O2SAT 98
== END 2017-09-03 16:49 | disposition home or self-care (01) ==
LOC: C.ER 23:51 → C.9E 09-03 05:49 → INTOOBSV 09-03 05:49 → C.9E 09-03 06:33 → C.5S 09-03 06:35
PROVIDERS: ADMIT Hospitalist; ATTEND Hospitalist
DX: R10.9 Unspecified abdominal pain (principal); Z86.711 Personal history of pulmonary embolism; Z90.49 Acquired absence of other specified parts of digestive tract; Z87.442 Personal history of urinary calculi; N18.9 Chronic kidney disease, unspecified; I12.9 Hypertensive chronic kidney disease with stage 1 through stage 4 chronic kidney disease, or unspecified chronic kidney disease; J45.909 Unspecified asthma, uncomplicated; R11.2 Nausea with vomiting, unspecified; Z79.01 Long term (current) use of anticoagulants; Z82.49 Family history of ischemic heart disease and other diseases of the circulatory system; Z88.5 Allergy status to narcotic agent; Z88.8 Allergy status to other drugs, medicaments and biological substances; Z91.041 Radiographic dye allergy status
CPT/HCPCS: 36556; 71045; 74176; 80053; 81001; 83690; 84703; 85025; 85610; 85730; 87086; 96365; 96372; 99285; C1751; C9113; G0378; J0696; J1170; J1650; J7040

== ENCOUNTER 2018-06-07 19:02 | Observation (INO) | payer SELFPAY, MEDICAID, OTHER | END 2018-06-09 19:02 | disposition home or self-care (01) | LOC: C.ER 19:02 → C.9E 21:32 → C.6T 22:08 | DX: R07.9 Chest pain, unspecified (principal); R00.0 Tachycardia, unspecified; K92.0 Hematemesis; R06.02 Shortness of breath; J45.909 Unspecified asthma, uncomplicated; E66.01 Morbid (severe) obesity due to excess calories; Z86.711 Personal history of pulmonary embolism ==

== ENCOUNTER 2018-06-29 18:30 | Emergency (ER) | payer MEDICAID ==
[2018-06-29 18:31] VITALS: BMI 47.4
[2018-06-29 18:48] VITALS: TEMP 98.6
--- NOTE | 2018-06-29 19:26 | C.PDOC ---
History Of Present Illness 48 year old female presents tot ED for evaluation of chest pain which began tonight. Patient reports thick, blood-tinged sputum and increased pain with deep breathing. She denies fever, chills, nausea, vomiting. Chief Complaint (Nursing): Chest Pain History Per: Patient History/Exam Limitations: no limitations Onset/Duration Of Symptoms: Hrs Current Symptoms Are (Timing): Still Present Quality: "Pain" Past Medical History Reviewed: Historical Data, Nursing Documentation, Vital Signs Vital Signs: Last Vital Signs Temp 98.6 F 06/29/18 18:43 Pulse 128 H 06/29/18 18:43 Resp 26 H 06/29/18 18:43 BP Pulse Ox 97 06/29/18 18:43 - Medical History PMH: Asthma, Gall Bladder Disease, Kidney Stones, Pulmonary Embolism (x11), Chronic Kidney Disease Denies: Alzheimer's Disease, Anemia, Anxiety, Arthritis, Atrial Fibrillation, Bipolar Disorder, Bronchitis, CAD, Cardia Arrhythmia, CHF, COPD, Crohn's Disease, Dementia, Depression, Diverticulitis, Emphysema, Fibromyalgia, Fractures, Gastritis, Gastrointestinal Ulcer, HIV, HTN, Hypercholesterolemia, Hyperthyroidism, Hypothyroidism, Migraine, Mitral Valve Prolapse, Multiple Sclerosis, Osteoporosis, Pancreatitis, Paranoia, Parkinson's Disease, Peripheral Edema, Pneumonia, Post Traumatic Stress Disorder, Rheumatoid Arthritis, Schizophrenia, Seizures, Sickle Cell Disease, Sexually Transmitted Disease, Sleep Apnea, TIA Surgical History: Appendectomy, Cholecystectomy Denies: CABG, Carotid Endarterectomy, Coronary Stent, Pacemaker, Tonsillectom y - [facility] Procedures APPLICATION OF SPLINT (12/04/04) CENTRAL VENOUS CATHETER PLACEMENT WITH GUIDANCE (05/11/14) CLOSED ENDOSCOPIC BIOPSY OF LARGE INTESTINE (09/03/05) DX ULTRASOUND-DIGESTIVE (09/03/05) ESOPHAGOGASTRODUODENOSCOPY [EGD] W/CLOSED BIOPSY (06/30/14) EXCISION OF STOMACH, ENDO, DIAGN (06/08/17) FLUOROSCOPY OF SUPERIOR VENA CAVA, GUIDANCE (05/04/18) INFLUENZA VACCINATION (08/28/14) INJECT ANTICOAGULANT (04/09/06) INJECT/INFUSE NEC (05/11/13) INSERT INFUSION DEV IN L INT JUGULAR VEIN, PERC (12/27/17) INSERTION OF INFUSION DEV INTO SUP VENA CAVA, PERC APPROACH (05/04/18) INTRODUCE OF OTH THERAP SUBST INTO RESP TRACT, VIA OPENING (02/02/18) INTRODUCE OTH ANTI-INFECT IN CENTRAL VEIN, PERC (05/04/18) NEBULIZER THERAPY (12/24/03) OTHER APPENDECTOMY (12/16/01) SPINAL TAP (11/28/12) ULTRASONOGRAPHY OF LEFT JUGULAR VEINS, GUIDANCE (12/27/17) ULTRASONOGRAPHY OF SUPERIOR VENA CAVA, GUIDANCE (05/04/18) VACCINATION NEC (08/28/14) VENOUS CATHETERIZATION NEC (10/27/13) Family History: States: Hypertension - Social History Hx Tobacco Use: No Hx Alcohol Use: No Hx Substance Use: No - Immunization History Hx Tetanus Toxoid Vaccination: Yes Hx Influenza Vaccination: No Hx Pneumococcal Vaccination: Yes Review Of Systems Constitutional: Negative for: Fever, Chills Cardiovascular: Positive for: Chest Pain Respiratory: Positive for: Cough, Sputum Gastrointestinal: Negative for: Nausea, Vomiting Physical Exam - Physical Exam Appears: Non-toxic, No Acute Distress Skin: Normal Color, Warm, Dry Head: Atraumatic, Normacephalic Eye(s): bilateral: Normal Inspection Oral Mucosa: Moist Neck: Supple Chest: Symmetrical, No Deformity, No Tenderness Cardiovascular: Rhythm Regular, No Murmur Respiratory: Normal Breath Sounds, No Rales, No Rhonchi, No Wheezing, Other (tachypneic ) Extremity: Normal ROM, Capillary Refill (less than 2 seconds ) Neurological/Psych: Oriented x3, Normal Speech, Normal Cognition ED Course And Treatment - Laboratory Results Result Diagrams: 06/29/18 20:00 06/29/18 20:00 ECG: Interpreted By Me, Viewed By Mt ECG Rhythm: Sinus Tachycardia ECG Interpretation: No Acute Changes, Abnormal Interpretation Of ECG: Sinus tachycardia, LVH, no acute changes, abnormal tracings. Rate From EC O2 Sat by Pulse Oximetry: 97 (on RA) Pulse Ox Interpretation: Normal Progress Note: Bloodwork, CXR, CT Angio, EKG ordered and reviewed. Morphine IM given. Patient continues to request Morphine for pain. Patient has had multiple previous admissions for similar symptoms, with negative workups for PE. Patient's bloodwork done tonight showed negative d-dimer. Patient is on 100% O2 via room air, showing no signs of distress and is stable for discharge. Patient is advised to follow up with PMD/clinic within 1-2 days for further evaluation. Advised to return to the ED immediately if symptoms persist or worsen. Patient is requesting Morphine before going home. 2mg of Morphine IM given. Disposition Counseled Patient/Family Regarding: Diagnosis - Disposition Referrals: [facility] [Outside] Disposition: HOME/ ROUTINE Disposition Time: 01:14 Condition: STABLE Additional Instructions: CONTINUE LOVENOX 120MG 2 X A DAY. Prescriptions: Tramadol HCl [Ultram] 25 mg PO Q6 #14 tablet Instructions: Pleuritic Chest Pain Forms: [facility] [facility] ([place]) - POA Present On Arrival: None - Clinical Impression Clinical Impression: Chest pain syndrome - Scribe Statement The provider has reviewed the documentation as recorded by the Scribe (Roxane Bermudez) Provider Attestation: All medical record entries made by the Scribe were at my direction and personally dictated by me. I have reviewed the chart and agree that the record accurately reflects my personal performance of the history, physical exam, medical decision making, and the department course for this patient. I have also personally directed, reviewed, and agree with the discharge instructions and disposition.
[2018-06-29 20:06] LABS: BASO # 0.1 K/uL (0.0-0.2); BASO % 0.4 % (0.0-2.0); EOS # 0.1 K/uL (0.0-0.7); EOS % 0.5 % (0.0-4.0); HEMOGLOBIN 10.3 g/dL (11.0-16.0); LYMPH % 11.2 % (20.0-40.0); MEAN CORPUSCULAR HEMOGLOBIN 24.2 pg (27.0-31.0); MEAN CORPUSCULAR HGB CONC 31.1 g/dL (33.0-37.0); MEAN PLATELET VOLUME 7.9 fL (7.2-11.7); MONO # 1.3 K/uL (0.0-0.8); MONO % 7.4 % (0.0-10.0); NEUT # 14.2 K/uL (1.8-7.0); NEUT % 80.5 % (50.0-75.0); NRBC % 0.5 % (0.0-2.0); RBC 4.25 Mil/uL (3.80-5.20); WHITE BLOOD COUNT 17.7 K/uL (4.8-10.8)
[2018-06-29] MEDS ORDERED: Morphine 4 MG/ML VIAL ONE (20:10)
[2018-06-29 20:31] LABS: ALB/GLOB RATIO 1.5 (1.0-2.1); ALBUMIN 4.1 g/dL (3.5-5.0); ALT/SGPT 29 U/L (9-52); AST/SGOT 21 U/L (14-36); BLOOD UREA NITROGEN 14 mg/dL (7-17); CALCIUM 9.7 mg/dl (8.6-10.4); GFR NON-AFRICAN AMERICAN > 60
[2018-06-29 20:38] LABS: ABG ALLEN TEST POS; ARTERIAL BLOOD GAS HCO3 28.4 mmol/L (21-28); ARTERIAL BLOOD GAS HEMOGLOBIN 9.9 g/dL (11.7-17.4); ARTERIAL BLOOD GAS O2 SAT 76.3 % (95-98); ARTERIAL BLOOD GAS PCO2 48 mm/Hg (35-45); ARTERIAL BLOOD GAS PH 7.41 (7.35-7.45); ARTERIAL BLOOD GAS PO2 38 mm/Hg (80-100); ARTERIAL BLOOD GAS TCO2 31.9 mmol/L (22-28)
[2018-06-29 20:55] LABS: INR 1.1; PARTIAL THROMBOPLASTIN TIME 23 SECONDS (21-34)
[2018-06-29 20:57] LABS: D DIMER < 200 ng/mlDDU (0-243)
[2018-06-29] MEDS ORDERED: Enoxaparin 40 mg Syringe SC STA (21:10)
[2018-06-29] MEDS ORDERED: Enoxaparin 100 mg Syringe ONE (21:30)
[2018-06-30 01:54] VITALS: BP 132/79; PULSE 98; RESP 18; O2SAT 99
--- NOTE | 2018-06-30 10:13 | RAD ---
HISTORY: chest pain COMPARISON: Chest x-ray performed 06/07/18 TECHNIQUE: Chest PA and lateral FINDINGS: Examination limited by habitus and hypoinflation. LUNGS: Mild linear atelectasis, left lung base. No focal consolidation. Please note that chest x-ray has limited sensitivity for the detection of pulmonary masses. PLEURA: No significant pleural effusion identified. No definite pneumothorax . CARDIOVASCULAR: Heart size appears within normal limits. Ectatic aorta. Atherosclerotic calcifications. OSSEOUS STRUCTURES: Degenerative changes. VISUALIZED UPPER ABDOMEN: Mild elevation of the left hemidiaphragm. OTHER FINDINGS: None. IMPRESSION: Mild linear atelectasis, left lung base.
--- NOTE | 2018-06-30 14:42 | CARD ---
APPROVED REPORT Date of service: 06/29/2018 EKG Measurement Heart [id number] <Conclusion> Sinus tachycardia Left ventricular hypertrophy with repolarization abnormality Abnormal ECG
== END 2018-06-30 01:53 | disposition home or self-care (01) ==
LOC: C.ER 18:30
DX: R07.9 Chest pain, unspecified (principal); N18.9 Chronic kidney disease, unspecified; Z86.711 Personal history of pulmonary embolism; Z87.442 Personal history of urinary calculi
CPT/HCPCS: 71046; 80053; 82803; 84484; 85025; 85378; 85610; 85730; 93005; 96372; 99284; J1650; J2270